=== PATIENT | female | born 1960 ===

== ENCOUNTER 2017-06-06 12:44 | Emergency (ER) | payer SELFPAY ==
[2017-06-06 12:49] VITALS: BMI 29.3
--- NOTE | 2017-06-06 13:41 | C.PDOC ---
History Of Present Illness 56 year old female, whose PMHx includes Parkinson's Disease and Depression, presents to the ED for evaluation of a large cellulitic region to her right inner thigh which was noted 5 days ago. Patient notes the area was painful until this morning. Denies any pain currently. Patient denies fever and chills. Time Seen by Provider: 06/06/17 13:32 Chief Complaint (Nursing): Abnormal Skin Integrity History Per: Patient History/Exam Limitations: no limitations Onset/Duration Of Symptoms: Days (5) Current Symptoms Are (Timing): Better Location Of Injury: Right: Thigh (inner ) Quality Of Symptoms: Painful Additional History Per: Patient Past Medical History Reviewed: Historical Data, Nursing Documentation, Vital Signs Vital Signs: Last Vital Signs Temp 98.4 F 06/06/17 17:06 Pulse 79 06/06/17 17:06 Resp 18 06/06/17 17:06 BP 113/69 06/06/17 17:06 Pulse Ox 99 06/06/17 17:58 - Medical History PMH: Depression, Parkinson's Disease Surgical History: No Surg Hx Family History: States: Unknown Family Hx - Social History Hx Alcohol Use: No Hx Substance Use: No Review Of Systems Constitutional: Negative for: Fever, Chills Skin: Positive for: Other (large cellulitic region to right inner thigh) Physical Exam - Physical Exam Appears: Non-toxic, No Acute Distress Skin: Normal Color, Warm, Dry, Other ([id number] erythematous, raised, warm cellulitic region with central area of induration. no fluctuance. superficial blistering from appyling hot compresses to the area ) Head: Atraumatic, Normacephalic Eye(s): bilateral: Normal Inspection Ear(s): Bilateral: Normal Nose: Normal, No Discharge Oral Mucosa: Moist Throat: Normal, No Erythema, No Exudate Neck: Supple Chest: Symmetrical, No Deformity, No Tenderness Cardiovascular: Rhythm Regular, No Murmur Respiratory: Normal Breath Sounds, No Rales, No Rhonchi, No Wheezing Extremity: Normal ROM, Capillary Refill (less than 2 seconds ) Neurological/Psych: Oriented x3, Normal Speech, Normal Cognition Gait: Steady ED Course And Treatment - Laboratory Results Result Diagrams: 06/06/17 14:09 06/06/17 14:09 O2 Sat by Pulse Oximetry: 99 (on RA) Pulse Ox Interpretation: Normal Medical Decision Making Medical Decision Making: Progress: Labs ordered and reviewed. Clindamycin IVP, Zosyn IVP, and Vancomycin IVP administered. Area does not require incision and drainage at this time. Patient will be prescribed antibiotics and discharged home with instructions to follow up with her PMD in 2 days and return to the ED in 2 days for re-evaluation. Disposition Counseled Patient/Family Regarding: Studies Performed, Diagnosis, Need For Followup, Rx Given - Disposition Disposition: HOME/ ROUTINE Disposition Time: 16:53 Condition: IMPROVED Additional Instructions: Follow up with your doctor in 2 days. Return to the Emergency Department for further evaluation in 2 days. Prescriptions: Clindamycin [Cleocin] 1 cap PO QID #30 cap Instructions: Cellulitis (ED) Forms: [facility] (Danish), Gen Discharge Inst Luxem[place]ish - POA Present On Arrival: None - Clinical Impression Clinical Impression: Cellulitis, Abscess - Scribe Statement The provider has reviewed the documentation as recorded by the Scribe (Mayela Schwarz) Provider Attestation: All medical record entries made by the Scribe were at my direction and personally dictated by me. I have reviewed the chart and agree that the record accurately reflects my personal performance of the history, physical exam, medical decision making, and the department course for this patient. I have also personally directed, reviewed, and agree with the discharge instructions and disposition.
[2017-06-06] MEDS ORDERED: Clindamycin 600mg/50ml NS 600 MG/50 ML BAG IVPB ONE (14:09)
[2017-06-06 14:12] LABS: BASO # 0.1 K/uL (0.0-0.2); BASO % 0.5 % (0.0-2.0); EOS # 0.1 K/uL (0.0-0.7); EOS % 0.8 % (0.0-4.0); HEMATOCRIT 40.1 % (34.0-47.0); LYMPH # 1.9 K/uL (1.0-4.3); LYMPH % 14.3 % (20.0-40.0); MEAN CELL VOLUME 87.3 fL (81.0-99.0); MEAN CORPUSCULAR HEMOGLOBIN 29.3 pg (27.0-31.0); MEAN CORPUSCULAR HGB CONC 33.6 g/dL (33.0-37.0); MEAN PLATELET VOLUME 7.7 fL (7.2-11.7); MONO # 0.8 K/uL (0.0-0.8); MONO % 6.2 % (0.0-10.0); WHITE BLOOD COUNT 13.4 K/uL (4.8-10.8)
[2017-06-06 14:16] LABS: VENOUS BLOOD GAS BASE EXCESS 2.7 mmol/L (0.0-2.0); VENOUS BLOOD GAS PCO2 44 mmHg (40-60); VENOUS BLOOD PH 7.41 (7.32-7.43)
[2017-06-06 14:18] LABS: CHLORIDE 100 mmol/L (98-107); SODIUM 135 mmol/L (132-148)
[2017-06-06 14:20] LABS: GFR AFRICAN-AMERICAN > 60
[2017-06-06 14:21] LABS: ALB/GLOB RATIO 1.3 (1.0-2.1); ALKALINE PHOSPHATASE 140 U/L (38-126); ALT/SGPT 27 U/L (9-52); AST/SGOT 24 U/L (14-36); BILIRUBIN,TOTAL 0.8 mg/dL (0.2-1.3); BLOOD UREA NITROGEN 15 mg/dL (7-17); CARBON DIOXIDE 25 mmol/L (22-30); GLUCOSE,RANDOM 94 mg/dL (65-105); TOTAL PROTEIN 7.7 g/dL (6.3-8.3)
[2017-06-06 14:22] LABS: CALCIUM 8.9 mg/dl (8.6-10.4)
[2017-06-06] MEDS: Clindamycin 600mg/50ml NS 600 MG/50 ML BAG IVPB STA (14:25)
[2017-06-06] MEDS: Piperacill/Tazo 3.375gm in Dex 3.375 GM/50 ML BAG IVPB STA (14:48)
[2017-06-06] MEDS: Clindamycin 600 MG in Sodium Chloride 0.9% 100 ML IVPB STA (14:48)
[2017-06-06] MEDS: Vancomycin 1 gm/NS 200 ml 1 GM/200 ML BAG IVPB STA (15:29)
[2017-06-06 17:07] VITALS: BP 113/69; PULSE 79; RESP 18; TEMP 98.4
[2017-06-06 17:54] VITALS: O2SAT 99
== END 2017-06-06 17:14 | disposition home or self-care (01) ==
LOC: C.ER 12:44
DX: L03.115 Cellulitis of right lower limb (principal); L02.415 Cutaneous abscess of right lower limb
CPT/HCPCS: 80053; 82803; 85025; 87040; 96365; 96366; 96367; 99284; J2543; J3370